=== PATIENT | male | born 1995 | race Caucasian/White ===

== ENCOUNTER → 2018-06-19 | Outpatient (CLI) | payer BC ==
--- NOTE | 2018-06-19 18:55 | RADIOLOGY IMAGING REPORT ---
FACILITY: [facility] - [place] PATIENT NAME: Mariusz Beavers : 1995 MR: [id number] V: [id number] EXAM DATE: ORDERING PHYSICIAN: MALCOLM ELIZABETH TECHNOLOGIST: Location: [facility] Patient: Mariusz Beavers : 1995 Visit/Account:[id number] Date of Sevice: 06/19/2018 CT BRAIN NO CONTRAST HISTORY: 23-year-old with syncope twice last night. Vomiting. COMPARISON STUDIES: None. TECHNIQUE: Contiguous axial images were obtained from the skull base to the vertex. One of the following dose optimization techniques was utilized in the performance of this exam: Autom ated exposure control; adjustment of the mA and/or kV according to the patient's size; or use of an i terative reconstruction technique. Specific details can be referenced in the facility's radiology C T exam operational policy. FINDINGS: Hemorrhage: There is no intraparenchymal or extra-axial mass or bleed. Ventricles / sulci / fissures: Negative Masses / midline shift: Negative White matter and more[place] matter: There are no abnormalities in the white matter. Extra-axial spaces: Negative Bones/skull base: Negative Visualized mastoid air cells / paranasal sinuses: There is mild mucosal thickening involving the floo r the maxillary sinuses bilaterally. There is no air-fluid level. Scalp and soft tissues: Negative. IMPRESSION: 1. Unremarkable CT scan of the brain. 2. Minimal mucosal thickening involving the maxillary sinuses bilaterally. Results were called to MALCOLM ELIZABETH M.D. At 06/19/2018 6:51 PM by [facility] at time of dictation. Report Dictated By: Beto Delgado MD at 06/19/2018 6:48 PM Report E-Signed By: Beto Delgado MD at 06/19/2018 6:51 PM WSN:[id number]
== END ==
LOC: CT 18:24
PROVIDERS: ATTEND Nurse Practitioner Family
DX: R51 Headache (principal)
CPT/HCPCS: 70450